=== PATIENT | female | born 1985 | race African-American/Black ===

== ENCOUNTER 2018-11-05 09:21 | Emergency (ER) | payer SELFPAY ==
[~2018-11-05] VITALS: Ht 172.7 cm; Wt 113.6 kg
[2018-11-05 09:26] VITALS: BP 144/87
[2018-11-05 09:52] VITALS: PULSE 99; TEMP 99
== END 2018-11-05 09:50 | disposition home or self-care (01) ==
LOC: COL.ER 09:21
DX: K94.09 Other complications of colostomy (principal); F32.9 Major depressive disorder, single episode, unspecified; F41.9 Anxiety disorder, unspecified; Z85.038 Personal history of other malignant neoplasm of large intestine

== ENCOUNTER 2018-11-25 10:16 | Emergency (ER) | payer SELFPAY ==
[~2018-11-25] VITALS: Ht 172.7 cm; Wt 112.3 kg
[2018-11-25 10:42] VITALS: BP 171/99; TEMP 98.3
[2018-11-25] MEDS ORDERED: CATAPRES 0.1MG0.1 MG PO (10:46)
[2018-11-25] MEDS ORDERED: ANTIDEPRESSANT (10:47)
[2018-11-25] MEDS ORDERED: ANTIHYPERTENSIVE (10:47)
--- NOTE | 2018-11-25 13:12 | NUR ---
DEBBIE met with the patient regarding ostomy supplies. The pt has lived at [facility] in [place] for approximately 1.5 months and is currently unemployed. Patient reports she plans on starting a job search soon. The pt does not have medical insurance. SW to contact [employer] about assisting with information about Medicaid application and financial application. The pt's PCP is Dr. Avendano at [facility]. The pt utilizes the online company [email or web address] to order ostomy supplies in emergency situations. The pt reports [facility] has assisted with ostomy supplies in the past and were supposed to have an ostomy nurse contact the pt. DEBBIE contacted [employer] and Reina reports she will speak with Isra and will contact DEBBIE on Tuesday. The pt reports she also has received ostomy supplies from [facility] and [facility]. The pt's ostomy is convexity one and a quarter cut or cut to fit. The pt received 2 flange with disk, 2 skin barrier rings and 2 skin adhesives. Patient's nurse set up follow up appointments. There are no additional needs a this time.
[2018-11-25 13:20] VITALS: PULSE 71
== END 2018-11-25 13:20 | disposition home or self-care (01) ==
LOC: COL.ER 10:16
DX: Z93.3 Colostomy status (principal); Z74.8 Other problems related to care provider dependency; I10 Essential (primary) hypertension; F32.9 Major depressive disorder, single episode, unspecified; Z85.038 Personal history of other malignant neoplasm of large intestine

== ENCOUNTER 2019-01-12 11:11 | Emergency (ER) | payer SELFPAY ==
[~2019-01-12] VITALS: Ht 172.7 cm; Wt 113.6 kg
[~2019-01-12 11:11] MED LIST: ANTIDEPRESSANT; ANTIHYPERTENSIVE; CATAPRES 0.1MG0.1 MG PO
[2019-01-12 11:19] VITALS: BP 138/94; PULSE 86; TEMP 98.5
== END 2019-01-12 11:56 | disposition home or self-care (01) ==
LOC: COL.ER 11:11
DX: Z76.0 Encounter for issue of repeat prescription (principal)